=== PATIENT | female | born 1960 | race Caucasian/White ===

== ENCOUNTER → 2017-02-14 | Outpatient (CLI) | payer OTHER ==
--- NOTE | 2017-02-14 13:45 | RAD ---
Indication injury 7 weeks previously. Persistent pain. AP oblique and lateral views of the right ankle were obtained. No prior imaging of the ankle is available. There is irregularity, most compatible with a healing, nondisplaced, fracture, involving the lateral malleolus. No additional bony finding is seen. IMPRESSION: Healing fracture lateral malleolus
--- NOTE | 2017-02-14 13:49 | RAD ---
Indication injury several weeks previously. Persistent pain. AP oblique and lateral views of the right foot were obtained. No acute or significant bony finding is seen
== END | disposition home or self-care (01) ==
LOC: RAD 11:38
PROVIDERS: ATTEND Family Medicine
DX: S99.911S Unspecified injury of right ankle, sequela (principal); S99.921S Unspecified injury of right foot, sequela; X58.XXXS Exposure to other specified factors, sequela
CPT/HCPCS: 73610; 73630

== ENCOUNTER 2017-07-07 10:36 | Emergency (ER) | payer OTHER ==
[~2017-07-07] VITALS: Ht 167.6 cm; Wt 74.4 kg
--- NOTE | 2017-07-07 11:22 | PHYS DOC ---
Past History Past Medical History: Hypertension Past Surgical History: Other Alcohol Use: None Drug Use: None Adult General Chief Complaint Chief Complaint: FLU SYMPTOM HPI HPI 56-year-old female presenting to the emergency department with generalized chills body aches headache cough and fever at home. She recently had flu exposure. Her symptoms started about 24 hours ago. The pain in her muscles is sharp shooting nonradiating mild and without alleviating factors. She has been taking [id number] analgesics with mild relief. She reports that her headache was not sudden in onset. She denies any numbness weakness or tingling in her hands or legs. Review of systems is negative for neck stiffness or nuchal rigidity, abdominal pain nausea vomiting. The patient denies any chest pain currently. All other review of systems is negative unless otherwise noted in history of present illness. ED course: 56-year-old female presenting to the emergency department with signs and symptoms suggestive of influenza. Upon arrival the patient is afebrile with mild high blood pressure which is chronic. Heart rate mildly elevated. Otherwise saturating well on room air. On examination of the patient she is well -appearing alert and nontoxic. Lungs are clear bilaterally abdomen is soft and nontender. No evidence of nuchal rigidity. Negative Brudzinski sign. Negative Kernig sign. No evidence of rash of the skin. Normal neurologic exam. Influenza testing sent. Influenza testing negative however we know this test has poor sensitivity this could be false negative. Otherwise blood work and EKG obtained which were unremarkable. EKG shows sinus rhythm with a regular rate. ST segments congruent. Not suggestive of ACS. Chest x-ray unremarkable. Blood work shows mild low potassium which was repleted upon discharge to follow up with her doctor the next few days. The patient was then discharged home in stable condition to follow up with their primary care physician over the next 2-3 days. They were to return if their symptoms worsened or if they were concerned for any reason. [id number] discharge instructions and return precautions were given. Patient's questions were answered to their satisfaction. Patient is comfortable with plan. Review of Systems Review of Systems SEE ABOVE. Allergies Allergies Allergies Coded Allergies Type Severity Reaction Last Updated Verified Penicillins Allergy Unknown 07/07/17 Yes Physical Exam Physical Exam SEE ABOVE Constitutional: Well developed, well nourished, no acute distress, non-toxic appearance. HENT: Normocephalic, atraumatic, bilateral external ears normal, oropharynx moist, no oral exudates, nose normal. [] Eyes: PERRLA, EOMI, conjunctiva normal, no discharge. [] Neck: Normal range of motion, no tenderness, supple, no stridor. [] Cardiovascular:Heart rate regular rhythm, no murmur Lungs & Thorax: Bilateral breath sounds clear to auscultation [] Abdomen: Bowel sounds normal, soft, no tenderness, no masses, no pulsatile masses. [] Skin: Warm, dry, no erythema, no rash. Back: No tenderness, no CVA tenderness. [] Extremities: No tenderness, no cyanosis, no clubbing, ROM intact, no edema. [] Neurologic: Alert and oriented X 3, normal motor function, normal sensory function, no focal deficits noted. Psychologic: Affect normal, judgement normal, mood normal. [] Current Patient Data Vital Signs Vital Signs Date Time Temp Pulse Resp B/P (MAP) Pulse Ox O2 Delivery O2 Flow Rate FiO2 07/07/17 10:47 98.6 107 16 95 Room Air EKG EKG [] Radiology/Procedures Radiology/Procedures [] Course & Med Decision Making Course & Med Decision Making Pertinent Labs and Imaging studies reviewed. (See chart for details) [] Dragon Disclaimer Dragon Disclaimer This electronic medical record was generated, in whole or in part, using a voice recognition dictation system. Departure Departure: Impression: Primary Impression: Body aches Additional Impressions: Fever Exposure to influenza Headache Cough Disposition: HOME, SELF-CARE Condition: STABLE Referrals: JAYASHREE TALAMANTES (PCP) Patient Instructions: Influenza, Adult Additional Instructions: Thank you for allowing us to participate in your care today. Followup with your primary care physician in 3 days if your symptoms do not improve. Call your Primary Doctor tomorrow and inform them of your visit today. If you do not have a primary care provider you can ask for a list of our primary care providers. Return to the emergency department you have any new or concerning findings. This should be evaluated by the primary care physician and any necessary consulting services for continued management within a few days after discharge. Return to emergency room if you have any new or concerning symptoms including but not limited to fever, chills, nausea, vomiting, intractable pain, any new rashes, chest pain, shortness of air, uncontrolled bleeding, difficulty breathing, and/or vision loss. Scripts Potassium Chloride (POTASSIUM CHLORIDE) 10 Meq Tablet.er 10 MEQ PO DAILY, #7 TAB Prov: SIGIFREDO FREITAS MD 07/07/17 Ibuprofen (IBUPROFEN) 400 Mg Tablet 1 TAB PO PRN Q8HRS Y for PAIN, #20 TAB Prov: SIGIFREDO FREITAS MD 07/07/17 Problem Qualifiers SIGIFREDO FREITAS MD Jul 07, 2017 11:22
[2017-07-07 11:24] LABS: INFLUENZA A PATIENT NEGATIVE (NEGATIVE); INFLUENZA B PATIENT NEGATIVE (NEGATIVE)
--- NOTE | 2017-07-07 12:21 | RAD ---
CHEST AP ONLY Clinical Indication: cough Comparison: Acute abdomen series dated 08/16/2007 Findings: The patient is slightly rotated to the right. Normal lung volume. Remote granulomatous disease. No focal consolidations. Normal pulmonary vasculature. No pleural effusion or pneumothorax. The cardiomediastinal silhouette is normal. Stable tortuous thoracic aorta. No acute osseous abnormality. IMPRESSION: No acute artery pulmonary process.
[2017-07-07 12:37] LABS: BASO % 1 % (0-3); EOS % 1 % (0-3); HEMATOCRIT 46.4 % (36.0-47.0); HEMOGLOBIN 16.1 g/dL (12.0-15.5); LYMPH # 1.1 x10^3/uL (1.0-4.8); LYMPH % 15 % (24-48); MEAN CORPUSCULAR HEMOGLOBIN 32 pg (25-35); MEAN CORPUSCULAR HGB CONC 35 g/dL (31-37); MEAN CORPUSCULAR VOLUME 92 fL (79-100); MONO # 0.6 x10^3/uL (0.0-1.1); MONO % 8 % (0-9); NEUT # 5.3 x10^3uL (1.8-7.7); NEUT % 75 % (31-73); PLATELET COUNT 198 x10^3/uL (140-400); RED BLOOD COUNT 5.03 x10^6/uL (3.50-5.40); RED CELL DISTRIBUTION WIDTH 13.4 % (11.5-14.5); WHITE BLOOD COUNT 7.1 x10^3/uL (4.0-11.0)
[2017-07-07 12:46] LABS: BACTERIA,URINE 0 /HPF (0-FEW); BILIRUBIN,URINE NEG (NEG); CLARITY,URINE CLEAR; COLOR,URINE YELLOW; GLUCOSE,URINE NEG (NEG); NITRITE,URINE NEG (NEG); RBC,URINE RARE /HPF (0-2); SQUAMOUS EPITHELIAL CELL,UR OCC /LPF; UROBILINOGEN,URINE 0.2 mg/dL (0.2 mg/dL); WBC,URINE 0 /HPF (0-4)
[2017-07-07] MEDS ORDERED: IBUPROFEN 400 MG TABLET. PO ONE ×2 (12:56→13:15)
[2017-07-07 13:03] LABS: ALBUMIN 3.9 g/dL (3.4-5.0); CALCIUM 9.5 mg/dL (8.5-10.1); CREATININE 0.6 mg/dL (0.6-1.0); DIRECT BILIRUBIN 0.2 mg/dL (0.0-0.2); POTASSIUM 3.2 mmol/L (3.5-5.1); TOTAL BILIRUBIN 0.8 mg/dL (0.2-1.0); TOTAL PROTEIN 7.6 g/dL (6.4-8.2)
[2017-07-07] MEDS ORDERED: IBUP400T18 PO (13:17)
[2017-07-07] MEDS ORDERED: POTA10TA10 PO (13:19)
[2017-07-07 13:29] VITALS: BP 131/88
--- NOTE | 2017-07-07 14:44 | EKG ---
[address] [address] Test Date: 2017-07-07 Test Time: 12:20:29 Pat Name: OUMOU GILMORE Department: Room: Gender: F [employer] Glazer: ERNESTINA : 1960 Requested By: SIGIFREDO FREITAS Order Number: [id number] Reading MD: Casey Castillo Measurements Intervals Gonzales Rate: 91 P: 9 DC: 156 QRS: 44 QRSD: 92 T: 12 QT: 324 QTc: 400 Interpretive Statements SINUS RHYTHM LEFT ATRIAL ABNORMALITY ABNORMAL ECG Electronically Signed On 07-11-2017 10:57:48 [employer] OPERATOR by Casey Castillo
== END 2017-07-07 13:30 | disposition home or self-care (01) ==
LOC: ER 10:36
DX: Z20.828 Contact with and (suspected) exposure to other viral communicable diseases (principal); M79.1 Myalgia; R51 Headache; I10 Essential (primary) hypertension; Z88.0 Allergy status to penicillin
CPT/HCPCS: 36415; 71045; 80048; 80076; 81001; 82550; 83690; 84484; 85025; 87804; 93005; 99285-25

== ENCOUNTER → 2017-10-10 | Outpatient (CLI) | payer OTHER ==
[~2017-10-10] MED LIST: IBUP400T18 PO; POTA10TA10 PO
[2017-10-10 07:44] LABS: BASO # 0.1 x10^3/uL (0.0-0.2); BASO % 1 % (0-3); EOS # 0.2 x10^3/uL (0.0-0.7); EOS % 2 % (0-3); HEMOGLOBIN 16.3 g/dL (12.0-15.5); LYMPH # 2.6 x10^3/uL (1.0-4.8); LYMPH % 32 % (24-48); MEAN CORPUSCULAR HEMOGLOBIN 32 pg (25-35); MEAN CORPUSCULAR HGB CONC 35 g/dL (31-37); MEAN CORPUSCULAR VOLUME 91 fL (79-100); MONO # 0.6 x10^3/uL (0.0-1.1); MONO % 7 % (0-9); NEUT # 4.7 x10^3uL (1.8-7.7); NEUT % 58 % (31-73); PLATELET COUNT 252 x10^3/uL (140-400); RED BLOOD COUNT 5.14 x10^6/uL (3.50-5.40); RED CELL DISTRIBUTION WIDTH 13.4 % (11.5-14.5); WHITE BLOOD COUNT 8.1 x10^3/uL (4.0-11.0)
[2017-10-10 07:50] LABS: BACTERIA,URINE 0 /HPF (0-FEW); BILIRUBIN,URINE NEG (NEG); CLARITY,URINE CLEAR; COLOR,URINE YELLOW; GLUCOSE,URINE NEG (NEG); NITRITE,URINE NEG (NEG); RBC,URINE 0 /HPF (0-2); SQUAMOUS EPITHELIAL CELL,UR OCC /LPF; UROBILINOGEN,URINE 0.2 mg/dL (0.2 mg/dL); WBC,URINE RARE /HPF (0-4)
[2017-10-10 08:00] LABS: ALBUMIN 4.3 g/dL (3.4-5.0); ALBUMIN/GLOBULIN RATIO 1.2 (1.0-1.7); CALCIUM 9.6 mg/dL (8.5-10.1); CREATININE 0.6 mg/dL (0.6-1.0); POTASSIUM 3.7 mmol/L (3.5-5.1); TOTAL BILIRUBIN 0.8 mg/dL (0.2-1.0); TOTAL PROTEIN 7.9 g/dL (6.4-8.2)
[2017-10-10 13:59] LABS: FREE T4 0.98 ng/dL (0.76-1.46); THYROID STIM HORMONE (TSH) 1.013 uIU/mL (0.358-3.740)
== END | disposition home or self-care (01) ==
LOC: LAB 07:21
PROVIDERS: ATTEND Physician Assistant
DX: Z00.01 Encounter for general adult medical examination with abnormal findings (principal); I10 Essential (primary) hypertension; R79.89 Other specified abnormal findings of blood chemistry
CPT/HCPCS: 36415; 80053; 80061; 81001; 82306; 84439; 84443; 85025; 86141

== ENCOUNTER → 2018-09-14 | Outpatient (CLI) | payer OTHER ==
[2018-09-14 12:22] LABS: BASO % 1 % (0-3); EOS # 0.1 x10^3/uL (0.0-0.7); EOS % 1 % (0-3); HEMATOCRIT 46.5 % (36.0-47.0); HEMOGLOBIN 15.9 g/dL (12.0-15.5); LYMPH # 2.2 x10^3/uL (1.0-4.8); LYMPH % 30 % (24-48); MEAN CORPUSCULAR HEMOGLOBIN 32 pg (25-35); MEAN CORPUSCULAR HGB CONC 34 g/dL (31-37); MEAN CORPUSCULAR VOLUME 93 fL (79-100); MONO # 0.5 x10^3/uL (0.0-1.1); MONO % 7 % (0-9); NEUT # 4.5 x10^3uL (1.8-7.7); NEUT % 61 % (31-73); PLATELET COUNT 241 x10^3/uL (140-400); RED BLOOD COUNT 4.99 x10^6/uL (3.50-5.40); RED CELL DISTRIBUTION WIDTH 13.5 % (11.5-14.5); WHITE BLOOD COUNT 7.3 x10^3/uL (4.0-11.0)
[2018-09-14 12:31] LABS: ALBUMIN 4.1 g/dL (3.4-5.0); ALBUMIN/GLOBULIN RATIO 1.1 (1.0-1.7); CALCIUM 9.9 mg/dL (8.5-10.1); CREATININE 0.6 mg/dL (0.6-1.0); GFR 102.7; POTASSIUM 4.3 mmol/L (3.5-5.1); TOTAL BILIRUBIN 0.7 mg/dL (0.2-1.0); TOTAL PROTEIN 7.8 g/dL (6.4-8.2)
[2018-09-14 12:42] LABS: BACTERIA,URINE FEW /HPF (0-FEW); BILIRUBIN,URINE NEG (NEG); CLARITY,URINE HAZY; COLOR,URINE STRAW; GLUCOSE,URINE NEG (NEG); NITRITE,URINE NEG (NEG); RBC,URINE 0 /HPF (0-2); SQUAMOUS EPITHELIAL CELL,UR FEW /LPF; UROBILINOGEN,URINE 0.2 mg/dL (0.2 mg/dL); WBC,URINE 0 /HPF (0-4)
--- NOTE | 2018-09-14 12:43 | RAD ---
DATE: 09/14/2018 EXAM: MAMMO PRABHA SCREENING BILATERAL HISTORY: Routine screening COMPARISON: Baseline study This study was interpreted with the benefit of Computerized Aided Detection (CAD). Breast Density: SCATTERED The breast parenchyma shows scattered fibroglandular densities. Breast parenchyma level B. FINDINGS: No suspicious mass or architectural distortion is evident. A single benign type calcification is noted on the left. No suspicious microcalcifications are evident. IMPRESSION: There is no mammographic evidence of malignancy in either breast. BI-RADS CATEGORY: 2 BENIGN FINDING(S) RECOMMENDED FOLLOW-UP: 12M 12 MONTH FOLLOW-UP PQRS compliance statement: Patient information was entered into a reminder system with a target due date for the next mammogram. Mammography is a sensitive method for finding small breast cancers, but it does not detect them all and is not a substitute for careful clinical examination. A negative mammogram does not negate a clinically suspicious finding and should not result in delay in biopsying a clinically suspicious abnormality. "Our facility is accredited by the [employer] Mammography Program."
[2018-09-15 13:37] LABS: FREE T4 0.87 ng/dL (0.76-1.46); THYROID STIM HORMONE (TSH) 0.842 uIU/mL (0.358-3.740)
== END | disposition home or self-care (01) ==
LOC: MAMMO 10:49
PROVIDERS: ATTEND Physician Assistant
DX: Z12.31 Encounter for screening mammogram for malignant neoplasm of breast (principal); C44.91 Basal cell carcinoma of skin, unspecified; I10 Essential (primary) hypertension; E23.2 Diabetes insipidus; M10.9 Gout, unspecified; F41.0 Panic disorder [episodic paroxysmal anxiety]; Z72.0 Tobacco use; Z82.49 Family history of ischemic heart disease and other diseases of the circulatory system
CPT/HCPCS: 36415; 77063; 77067; 80053; 80061; 81001; 84439; 84443; 85025

== ENCOUNTER 2019-07-01 18:42 | Emergency (ER) | payer OTHER ==
[~2019-07-01] VITALS: Ht 167.6 cm; Wt 74.4 kg
--- NOTE | 2019-07-01 18:44 | PHYS DOC ---
Past History Past Medical History: Arthritis, Hypertension Past Surgical History: Other Alcohol Use: None Drug Use: None Adult General Chief Complaint Chief Complaint: FOOT INJURY PAIN ,, " I was moving a pt to CT ... And the oxygen fell over and crushed my right toe..." HPI HPI Patient is a 58 year old female [employer] employee who presents with Lt. lst toe and foot injury. Reportedly while moving a patient to CT table oxygen tank fell off and crushed her left first toe. Patient has obvious compression injury to left first toe. Distal neurovascular intact. Patient is unsure of her last tetanus-in excess of 5-10 years Review of Systems Review of Systems Constitutional: Denies fever or chills [] Eyes: Denies change in visual acuity, redness, or eye pain [] HENT: Denies nasal congestion or sore throat [] Respiratory: Denies cough or shortness of breath [] Cardiovascular: No additional information not addressed in HPI [] GI: Denies abdominal pain, nausea, vomiting, bloody stools or diarrhea [] : Denies dysuria or hematuria [] Musculoskeletal: Denies back pain or joint pain []. Patient complaints of injury to left first toe Integument: Denies rash or skin lesions [] Neurologic: Denies headache, focal weakness or sensory changes [] Endocrine: Denies polyuria or polydipsia [] All other systems were reviewed and found to be within normal limits, except as documented in this note. Family History Family History Noncontributory to presentation Current Medications Current Medications See nursing for home meds Allergies Allergies Allergies Coded Allergies Type Severity Reaction Last Updated Verified Penicillins Allergy Unknown 07/07/17 Yes Physical Exam Physical Exam Constitutional: in acute distress, non-toxic appearance. [] HENT: Normocephalic, atraumatic, bilateral external ears normal, oropharynx moist, no oral exudates, nose normal. [] Eyes: PERRLA, EOMI, conjunctiva normal, no discharge. [] Neck: Normal range of motion, no tenderness, supple, no stridor. [] Cardiovascular:Heart rate regular rhythm, no murmur [] Lungs & Thorax: Bilateral breath sounds clear to auscultation [] Abdomen: Bowel sounds normal, soft, no tenderness, no masses, no pulsatile masses. [] Skin: Warm, dry, no erythema, no rash. [] Back: No tenderness, no CVA tenderness. [] Extremities: No tenderness, no cyanosis, no clubbing, ROM intact, no edema. [] Except findings of crush injury to left first toe as per history of present illness. Arthritic changes. Neurologic: Alert and oriented X 3, normal motor function, normal sensory function, no focal deficits noted. [] Psychologic: Affect anxious, judgement normal, mood normal. [] EKG EKG [] Radiology/Procedures Radiology/Procedures [][address] [address] IMAGING REPORT Signed PATIENT: OUMOU GILMORE ACCOUNT: [id number] : 1960 LOCATION: ER AGE: 58 SEX: F EXAM STATUS: REG ER ORD. PHYSICIAN: SONU SHORT MD REASON: crush foot and lst toe with oxygen container PROCEDURE: FOOT LEFT 3V EXAM: AP, oblique and lateral views left foot DATE: 07/01/2019 7:32 PM INDICATION: crush foot and lst toe with oxygen container COMPARISON: No Prior FINDINGS/ IMPRESSION: Decreased bone mineral density. No evidence of acute fracture or dislocation. Mild forefoot soft tissue swelling. Calcaneal enthesopathy. Electronically signed by: Henry Rabago MD (07/01/2019 9:04 PM) [facility] DICTATED AND SIGNED BY: HENRY RABAGO MD DATE: 07/01/19 2104 CC: SONU SHORT MD; JAYASHREE TALAMANTES ~ Course & Med Decision Making Course & Med Decision Making Pertinent Labs and Imaging studies reviewed. (See chart for details) Patient take Tylenol and ibuprofen as needed for pain. For marked pain may take Vicoprofen up to 4 times a day. Wear only White Socks. Apply Polysporin to abrasion area of left first toe. Follow-up primary care. Follow-up work comp. Return if any concerns. Wear a stiff shoe. Impression: 1. Crush Injury Lt lst Toe [] Dragon Disclaimer Dragon Disclaimer This electronic medical record was generated, in whole or in part, using a voice recognition dictation system. Departure Departure: Disposition: 01 HOME/RESIDENCE PRIOR TO ADM Condition: STABLE Referrals: JAYASHREE TALAMANTES (PCP) Scripts Hydrocodone/Ibuprofen (HYDROCODONE-IBUPROFEN 7.5-200 ) 1 Each Tablet 1 TAB PO PRN Q6HRS PRN for PAIN, #30 TAB 0 Refills Prov: SONU SHORT MD 07/01/19 Aris Disclaimer This chart was dictated in whole or in part using Voice Recognition software in a busy, high-work load, and often noisy Emergency Department environment. It may contain unintended and wholly unrecognized errors or omissions. SONU SHORT MD Jul 01, 2019 18:44
[2019-07-01] MEDS ORDERED: IBUPROFEN 600 MG TABLET. PO ONE (20:00)
[2019-07-01] MEDS ORDERED: DIPHTH,PERTUSS(ACELL),TET TOX 0.5 ML DISP.SYRIN. VAX IM ONE (20:00)
[2019-07-01] MEDS ORDERED: ACETAMINOPHEN 500 MG TABLET PO ONE (20:00)
[2019-07-01] MEDS ORDERED: HYDR-1179 PO (20:42)
[2019-07-01 20:58] VITALS: BP 144/79
--- NOTE | 2019-07-01 21:07 | RAD ---
EXAM: AP, oblique and lateral views left foot DATE: 07/01/2019 7:32 PM INDICATION: crush foot and lst toe with oxygen container COMPARISON: No Prior FINDINGS/ IMPRESSION: Decreased bone mineral density. No evidence of acute fracture or dislocation. Mild forefoot soft tissue swelling. Calcaneal enthesopathy. Electronically signed by: Henry Campbell MD (07/01/2019 9:04 PM) [id number]
== END 2019-07-01 20:58 | disposition home or self-care (01) ==
LOC: ER 18:42
DX: I10 Essential (primary) hypertension (principal); S97.112A Crushing injury of left great toe, initial encounter; M19.90 Unspecified osteoarthritis, unspecified site; Z88.0 Allergy status to penicillin; W20.8XXA Other cause of strike by thrown, projected or falling object, initial encounter; Y93.89 Activity, other specified; Y92.89 Other specified places as the place of occurrence of the external cause; Y99.0 Civilian activity done for income or pay
CPT/HCPCS: 73630; 90471; 90715; 99284

== ENCOUNTER → 2019-10-14 | Outpatient (CLI) | payer OTHER ==
[~2019-10-14] MED LIST changes: +HYDR-1179 PO
== END | disposition home or self-care (01) ==
LOC: LAB 15:23
PROVIDERS: ATTEND Internal Medicine Cardiovascular Disease
DX: R50.9 Fever, unspecified (principal); R06.02 Shortness of breath; Z20.828 Contact with and (suspected) exposure to other viral communicable diseases
CPT/HCPCS: 87635

== ENCOUNTER → 2020-01-05 | Outpatient (CLI) | payer OTHER ==
[2020-01-05 16:34] LABS: BASO % 1 % (0-3); EOS # 0.1 x10^3/uL (0.0-0.7); EOS % 2 % (0-3); HEMATOCRIT 41.8 % (36.0-47.0); HEMOGLOBIN 14.5 g/dL (12.0-15.5); LYMPH # 2.5 x10^3/uL (1.0-4.8); LYMPH % 28 % (24-48); MEAN CORPUSCULAR HEMOGLOBIN 33 pg (25-35); MEAN CORPUSCULAR HGB CONC 35 g/dL (31-37); MEAN CORPUSCULAR VOLUME 94 fL (79-100); MONO # 0.5 x10^3/uL (0.0-1.1); MONO % 6 % (0-9); NEUT # 5.6 x10^3uL (1.8-7.7); NEUT % 64 % (31-73); PLATELET COUNT 246 x10^3/uL (140-400); RED BLOOD COUNT 4.43 x10^6/uL (3.50-5.40); RED CELL DISTRIBUTION WIDTH 13.7 % (11.5-14.5); WHITE BLOOD COUNT 8.7 x10^3/uL (4.0-11.0)
[2020-01-05 16:41] LABS: ALBUMIN/GLOBULIN RATIO 1.2 (1.0-1.7); CALCIUM 9.2 mg/dL (8.5-10.1); CREATININE 0.8 mg/dL (0.6-1.0); GFR 73.2; POTASSIUM 3.5 mmol/L (3.5-5.1); TOTAL BILIRUBIN 0.4 mg/dL (0.2-1.0); TOTAL PROTEIN 7.4 g/dL (6.4-8.2)
[2020-01-06 15:22] LABS: FREE T4 0.97 ng/dL (0.76-1.46); THYROID STIM HORMONE (TSH) 0.775 uIU/mL (0.358-3.740)
== END ==
LOC: LAB 15:09
PROVIDERS: ATTEND Physician Assistant
DX: Z00.00 Encounter for general adult medical examination without abnormal findings (principal); M10.9 Gout, unspecified; E23.2 Diabetes insipidus; I10 Essential (primary) hypertension; Z82.49 Family history of ischemic heart disease and other diseases of the circulatory system
CPT/HCPCS: 36415; 80053; 80061; 84439; 84443; 85025

== ENCOUNTER 2020-04-04 09:15 | Emergency (ER) | payer OTHER ==
[~2020-04-04] VITALS: Ht 167.6 cm; Wt 74.5 kg
--- NOTE | 2020-04-04 09:49 | PHYS DOC ---
Past History Past Medical History: Arthritis, Hypertension Past Surgical History: Other Additional Past Surgical Histo: left knee Alcohol Use: None Drug Use: None General Adult EDM: Chief Complaint: ANKLE PROBLEM HPI: HPI: 59-year-old female past medical history significant for gout and hypertension, presents to the ED with complaints of right lateral ankle pain that started late last night after patient fell and twisted her right ankle while she was walking down stairs in the dark. Patient states she did not see that a rake was over the steps-left foot stepped on the rake and patient fell such that her right ankle inverted. Does report a history of a right ankle fracture 1 or 2 years ago that she did not seek medical attention until it was already healed. Took 800 mg of ibuprofen at 7:30 in the morning. Denies any recent antibiotic or fluoroquinolone use. Was not under influence of any alcohol drugs. Is not on any anticoagulants. Did not hit her head or have any LOC. Reports she is able to put some weight on the heel of her foot but is using a family members crutches. Vaccines UTD. Review of Systems: Review of Systems: Constitutional: Denies fever or chills Eyes: Denies change in visual acuity HENT: Denies nasal congestion or sore throat or hemoptysis Respiratory: Denies cough or shortness of breath Cardiovascular: Denies chest pain or edema GI: Denies abdominal pain, nausea, vomiting, bloody stools or diarrhea : Denies dysuria or hematuria Musculoskeletal: Denies back pain or joint pain Integument: Denies rash Neurologic: Denies headache, focal weakness or sensory changes, midline neck pain or neck stiffness, saddle anesthesia, urinary bowel retention or incontinence Endocrine: Denies polyuria or polydipsia Lymphatic: Denies swollen glands Psychiatric: Denies depression or anxiety Heart Score: Risk Factors: Risk Factors: DM, Current or recent (<one month) smoker, HTN, HLP, family history of CAD, obesity. Risk Scores: Score 0 - 3: 2.5% MACE over next 6 weeks - Discharge Home Score 4 - 6: 20.3% MACE over next 6 weeks - Admit for Clinical Observation Score 7 - 10: 72.7% MACE over next 6 weeks - Early Invasive Strategies Allergies: Allergies: Allergies Coded Allergies Type Severity Reaction Last Updated Verified Penicillins Allergy Unknown 04/04/20 Yes Physical Exam: PE: Constitutional: Well developed, well nourished, no acute distress, non-toxic appearance. [] HENT: Normocephalic, atraumatic, bilateral external ears normal, Eyes: EOMI, conjunctiva normal, no discharge. [] Neck: Normal range of motion, supple, Cardiovascular:Heart rate regular rhythm, S1/2 present Lungs & Thorax: Speaking full sentences, bilateral equal chest rise Abdomen: soft, no tenderness, Skin: Warm, dry, no erythema, no rash. [] Back: No tenderness, Extremities: No tenderness, no cyanosis, no clubbing, painful R plantar flexion, ttp over right distal fibula and lateral malleoli, no pain at knee or fibular head, no hip ttp, R PT/TP intact, no obvious swelling, bunion over foot, no heel pain or plantar ecchymosis Neurologic: Alert and oriented X 3, normal motor function, normal sensory function, no focal deficits noted. [] Psychologic: Affect normal, judgement normal, mood normal. [] Current Patient Data: Vital Signs: Vital Signs Date Time Temp Pulse Resp B/P (MAP) Pulse Ox O2 Delivery O2 Flow Rate FiO2 04/04/20 09:28 97.6 79 18 125/78 (94) 99 Room Air EKG: EKG: [] Radiology/Procedures: Radiology/Procedures: []IMAGING REPORT Signed PATIENT: OUMOU GILMORE ACCOUNT: [id number] : 1960 LOCATION: ER AGE: 59 SEX: F EXAM STATUS: REG ER ORD. PHYSICIAN: AMPARO VARGAS DO REASON: lateral right ankle pain PROCEDURE: ANKLE RIGHT 2V PROCEDURE: ANKLE RIGHT 2V STUDY DATE: 04/04/2020 CLINICAL INDICATION / HISTORY: Reason: lateral right ankle pain / Spl. Instructions: / History: . TECHNIQUE: Right ankle 3 views. COMPARISON: None FINDINGS: Acute horizontally oriented fracture of the medial malleolus with minimal distraction is present along with spiral fracture of the lateral malleolus extending above the tibial plafond and. Lateral view suggests cortical irregularity at the posterior malleolus suspicious for nondisplaced acute fracture present as well. There is relatively little soft tissue swelling associated. A calcaneal spur is present along with a small Stieda process. IMPRESSION: Acute trimalleolar fracture right ankle with no significant displacement. PROCEDURE: FOOT RIGHT 3V STUDY DATE: 04/04/2020 CLINICAL INDICATION / HISTORY: Reason: lateral right ankle pain . TECHNIQUE: AP, oblique and lateral views of the right foot were obtained. COMPARISON: Right ankle x-rays same day FINDINGS: There is generalized osteopenia. An oblique lucency through the medial base of the first cuboid bone is present with minimal displacement. There is overlying soft tissue swelling. The rest of the bones are unremarkable in the right foot. Incidentally noted are lucencies through the medial malleolus, posterior malleolus and distal fibula, compatible with acute trimalleolar ankle fractures. IMPRESSION: Age-indeterminate, possibly acute fracture through the medial base of the first cuboid bone. This is presence in the setting of osteopenia. Otherwise no acute abnormality in the right foot noted. Incidental trimalleolar ankle fracture is present. PROCEDURE: TIBIA FIBULA RIGHT 2V STUDY DATE: 04/04/2020 CLINICAL INDICATION / HISTORY: Reason: lateral right ankle pain. TECHNIQUE: AP and lateral views of the right tibia and fibula. COMPARISON: Right ankle x-rays of the same day. FINDINGS: Patient's acute fractures of the ankle are better imaged and described on the same day right ankle x-rays. In addition to that however, a vertically oriented acute appearing fracture in the proximal right fibula is present without displacement. No proximal tibial fracture is identified. Soft tissues are unremarkable. IMPRESSION: Acute vertically oriented fracture through the proximal right fibula. In addition to the lateral malleolus fracture noted on same-day right ankle x-rays, this is suspicious for syndesmotic injury. Electronically signed by: Jaycee Johnson MD (04/04/2020 10:28 AM) [id number] DICTATED AND SIGNED BY: JAYCEE JOHNSON MD DATE: 04/04/20 1028 CC: JAYASHREE TALAMANTES; AMPARO VARGAS DO ~ Patient was informed of findings. Right stirrup ankle splint applied by RN. The splint is checked by myself, with appropriate stabilization of the injury. Distal capillary refill normal and distal neurologic function intact Course & Med Decision Making: Course & Med Decision Making Pertinent Labs and Imaging studies reviewed. (See chart for details) Concern for acute trimalleolar fracture with possible syndesmotic injury, age- indeterminate right cuboid fracture. Patient very calm with no signs or symptoms of compartment syndrome, does not have any neurologic deficits, no pain out of proportion. Does not have any pain at the fibular head or knee. I discussed patient imaging finding with Dr. Matute, orthopedic surgery who request stirrup splint, crutches, nonweightbearing to right lower extremity and to call for an appointment on this week. We discussed pain management -will provide prescription for low-dose tramadol as needed for pain-patient reports likely she will not refill this medication, does not like how hydrocodone makes her feel. Is aware of the sedating and addicting effects, agrees to have someone who can observe her while taking this medication. Strict ED return precautions were given for severe pain, repeat injury or neurologic deficits. Encouraged urgent outpatient follow-up with PMD and Ortho. Life-threatening processes were considered but are low suspicion at this time, given history and physical exam. Pt was educated on all prescription medications and adverse effects. All patient's questions were answered and pt was stable at time of discharge. Differential includes fracture, dislocation, laceration, osteomyelitis, compartment syndrome, neurovascular injury or deficit, infection (abscess, cellulitis, septic arthritis), head/neck trauma, tendon or ligament injury. I spoken with the patient and her caregivers. I explained the patient's condition, diagnoses and treatment plan based on the information available to me at this time. I have answered the patient and her caregiver's questions and addressed any concerns. The patient and her caregivers have a good understanding of patient's diagnosis, condition and treatment plan as can be expected at this point. Vital signs have been stable. Patient's condition is stable and appropriate for discharge from the emergency department. Patient will pursue further outpatient evaluation with primary care physician or other designated or consulting physician as outlined in the discharge instructions. The patient and/or caregivers are agreeable to this plan of care and follow-up instructions have been explained in detail. The patient and/or caregivers have received these instructions in written form and have expressed an understanding of the discharge instructions. The patient and/or caregivers are aware that any significant change of condition or worsening of symptoms should prompt immediate return to this or the closest emergency department or call to 911. Aris Disclaimer: Aris Disclaimer: This electronic medical record was generated, in whole or in part, using a voice recognition dictation system. Departure Departure: Impression: Primary Impression: Trimalleolar fracture of ankle, closed Additional Impressions: Fracture of right cuboid bone Ankle pain, right Disposition: 01 HOME/RESIDENCE PRIOR TO ADM Condition: STABLE Referrals: JAYASHREE TALAMANTES (PCP) Patient Instructions: Ankle Fracture, Compartment Syndrome of the Foot, Crutch Use, Splint Care, [id number] Additional Instructions: [facility]0-TO SCHEDULE APPOINTMENT TIME FOR Friday04/06/[address] ESCOBAR [address] [facility], [address] [place] [address] EMERGENCY DEPARTMENT GENERAL DISCHARGE INSTRUCTIONS Thank you for coming to [facility] (ED) today and trusting us with you care. We trust that you had a positivie experience in our Emergency Department. If you wish to speak to the department management, you may call the director at [phone]. YOUR FOLLOW UP INSTRUCTIONS ARE FOLLOWS: 1. Do you have a private Doctor? If you do not have a private doctor, please ask for a resource list of physicians or clinics that may be able to assist you with follow up care. 2. The Emergency Physician has interpreted your x-rays. The X-Ray specialist will also review them. If there is a change in the findings, you will be notified in 48 hours when at all possible. 3. A lab test or culture has been done, your results will be reviewed and you will be notified if you need a change in treatment. ADDITIONAL INSTRUCTIONS AND INFORMATION: 1. Your care today has been supervised by a physician who is specially trained in emergency care. Many problems require more than one evaluation for a complete diagnosis and treatment. We recommend that you schedule your follow up appointment as recommended to ensure complete treatment of you illness or injury. If you are unable to obtain follow up care and continue to have a problem, or if your condition worsens, we recommend that you return to the ED. 2. We are not able to safely determine your condition over the phone nor are we able to give sound medical advice over the phone. For these safety reasons, if you call for medical advice we will ask you to come to the ED for further evaluation. 3. If you have any questions regarding these discharge instructions please call the ED at [phone]. SAFETY INFORMATION: In the interest of safety, wellness, and injury prevention; we encourage you to wear your sealbelt, if you smoke; quite smoking, and we encourage family to use a protective helmet for bicycling and other sporting events that present an increased risk for head injury. IF YOUR SYMPTOMS WORSEN OR NEW SYMPTOMS DEVELOP, OR YOU HAVE CONCERNS ABOUT YOUR CONDITION; OR IF YOUR CONDITION WORSENS WHILE YOU ARE WAITING FOR YOUR FOLLOW UP APPOINTMENT; EITHER CONTACT YOUR PRIMARY CARE DOCTOR, THE PHYSICIAN WHOSE NAME AND NUMBER YOU WERE GIVEN, OR RETURN TO THE ED IMMEDIATELY. Scripts Tramadol Hcl (TRAMADOL HCL) 50 Mg Tablet 50 MG PO PRN Q6HRS PRN for PAIN for 3 Days, #12 TAB 0 Refills You can take half a tablet every 6 hours as needed. Avoid alcohol, driving or other sedatives with this medication. Prov: AMPARO VARGAS DO 04/04/20 Justification of Admission: Justification of Admission: Justification of Admission Dx: N/A AMPARO VARGAS DO Apr 04, 2020 09:49
--- NOTE | 2020-04-04 10:30 | RAD ---
PROCEDURE: ANKLE RIGHT 2V STUDY DATE: 04/04/2020 CLINICAL INDICATION / HISTORY: Reason: lateral right ankle pain / Spl. Instructions: / History: . TECHNIQUE: Right ankle 3 views. COMPARISON: None FINDINGS: Acute horizontally oriented fracture of the medial malleolus with minimal distraction is present along with spiral fracture of the lateral malleolus extending above the tibial plafond and. Lateral view suggests cortical irregularity at the posterior malleolus suspicious for nondisplaced acute fracture present as well. There is relatively little soft tissue swelling associated. A calcaneal spur is present along with a small Stieda process. IMPRESSION: Acute trimalleolar fracture right ankle with no significant displacement. PROCEDURE: FOOT RIGHT 3V STUDY DATE: 04/04/2020 CLINICAL INDICATION / HISTORY: Reason: lateral right ankle pain . TECHNIQUE: AP, oblique and lateral views of the right foot were obtained. COMPARISON: Right ankle x-rays same day FINDINGS: There is generalized osteopenia. An oblique lucency through the medial base of the first cuboid bone is present with minimal displacement. There is overlying soft tissue swelling. The rest of the bones are unremarkable in the right foot. Incidentally noted are lucencies through the medial malleolus, posterior malleolus and distal fibula, compatible with acute trimalleolar ankle fractures. IMPRESSION: Age-indeterminate, possibly acute fracture through the medial base of the first cuboid bone. This is presence in the setting of osteopenia. Otherwise no acute abnormality in the right foot noted. Incidental trimalleolar ankle fracture is present. PROCEDURE: TIBIA FIBULA RIGHT 2V STUDY DATE: 04/04/2020 CLINICAL INDICATION / HISTORY: Reason: lateral right ankle pain. TECHNIQUE: AP and lateral views of the right tibia and fibula. COMPARISON: Right ankle x-rays of the same day. FINDINGS: Patient's acute fractures of the ankle are better imaged and described on the same day right ankle x-rays. In addition to that however, a vertically oriented acute appearing fracture in the proximal right fibula is present without displacement. No proximal tibial fracture is identified. Soft tissues are unremarkable. IMPRESSION: Acute vertically oriented fracture through the proximal right fibula. In addition to the lateral malleolus fracture noted on same-day right ankle x-rays, this is suspicious for syndesmotic injury. Electronically signed by: Cuba Johnson MD (04/04/2020 10:28 AM) [id number]
[2020-04-04] MEDS ORDERED: TRAM50TA PO (10:57)
[2020-04-04 11:15] VITALS: BP 125/73
== END 2020-04-04 11:14 | disposition home or self-care (01) ==
LOC: ER 09:15
DX: S82.851A Displaced trimalleolar fracture of right lower leg, initial encounter for closed fracture (principal); S92.211A Displaced fracture of cuboid bone of right foot, initial encounter for closed fracture; M19.90 Unspecified osteoarthritis, unspecified site; I10 Essential (primary) hypertension; M54.2 Cervicalgia; Z88.0 Allergy status to penicillin; X50.1XXA Overexertion from prolonged static or awkward postures, initial encounter; Y93.01 Activity, walking, marching and hiking; Y92.89 Other specified places as the place of occurrence of the external cause; Y99.8 Other external cause status
CPT/HCPCS: 29125; 29515; 73590; 73600; 73630; 99284

== ENCOUNTER → 2020-05-24 | Outpatient (CLI) | payer OTHER ==
[~2020-05-24] MED LIST changes: +TRAM50TA PO
--- NOTE | 2020-05-24 16:34 | RAD ---
Study: CR ANKLE RIGHT 3V Indication: Right ankle pain. Comparison: 04/04/2020 Findings: Intact and well fixated lateral plate and screw ORIF construct at the distal fibula. The intervening fracture seen on the comparison is not well identified on this exam and appears mostly healed. Two intact and well fixated medial malleolus screws. Partially healed intervening medial malleolar fracture which is in anatomic alignment. No newly seen fracture. The ankle mortise is symmetric. Midfoot arthrosis and a plantar calcaneal spur. Impression: Intact distal fibula and medial malleolar are surgical hardware. Mostly healed distal fibula and medial malleolar fractures. Electronically signed by: LUCY VIDES MD (05/24/2020 4:32 PM) [id number]
== END ==
LOC: DXRAD 10:19
PROVIDERS: ATTEND Physician Assistant
DX: M19.071 Primary osteoarthritis, right ankle and foot (principal); M77.31 Calcaneal spur, right foot; Z98.890 Other specified postprocedural states
CPT/HCPCS: 73610

== ENCOUNTER → 2020-10-20 | Outpatient (CLI) | payer OTHER ==
[2020-10-20 08:48] LABS: BASO % 1 % (0-3); EOS # 0.1 x10^3/uL (0.0-0.7); EOS % 2 % (0-3); HEMATOCRIT 41.8 % (36.0-47.0); HEMOGLOBIN 14.3 g/dL (12.0-15.5); LYMPH # 2.5 x10^3/uL (1.0-4.8); LYMPH % 31 % (24-48); MEAN CORPUSCULAR HEMOGLOBIN 32 pg (25-35); MEAN CORPUSCULAR HGB CONC 34 g/dL (31-37); MEAN CORPUSCULAR VOLUME 94 fL (79-100); MONO # 0.6 x10^3/uL (0.0-1.1); MONO % 8 % (0-9); NEUT # 4.8 x10^3uL (1.8-7.7); NEUT % 59 % (31-73); PLATELET COUNT 244 x10^3/uL (140-400); RED BLOOD COUNT 4.43 x10^6/uL (3.50-5.40); RED CELL DISTRIBUTION WIDTH 13.2 % (11.5-14.5); WHITE BLOOD COUNT 8.2 x10^3/uL (4.0-11.0)
[2020-10-20 09:00] LABS: ALBUMIN 3.7 g/dL (3.4-5.0); ALBUMIN/GLOBULIN RATIO 1.1 (1.0-1.7); C REACTIVE PROTEIN 2.8 mg/L (0-3.3); CALCIUM 8.8 mg/dL (8.5-10.1); GFR 56.6; POTASSIUM 3.6 mmol/L (3.5-5.1); TOTAL BILIRUBIN 0.4 mg/dL (0.2-1.0)
[2020-10-20 09:20] LABS: BILIRUBIN,URINE NEG (NEG); CLARITY,URINE CLEAR; COLOR,URINE YELLOW; GLUCOSE,URINE NEG (NEG)
[2020-10-20 09:21] LABS: NITRITE,URINE NEG (NEG); UROBILINOGEN,URINE 0.2 mg/dL (0.2 mg/dL)
[2020-10-20 09:22] LABS: BACTERIA,URINE 0 /HPF (0-FEW); RBC,URINE 0 /HPF (0-2); WBC,URINE 0 /HPF (0-4)
== END ==
LOC: LAB 07:45
PROVIDERS: ATTEND Family Medicine
DX: E03.9 Hypothyroidism, unspecified (principal); M86.8X8 Other osteomyelitis, other site
CPT/HCPCS: 36415; 80053; 81001; 84443; 85025; 86140

== ENCOUNTER → 2021-02-27 | Outpatient (CLI) | payer OTHER | LOC: LAB 17:40 | PROVIDERS: ATTEND Internal Medicine Cardiovascular Disease | DX: R07.0 Pain in throat (principal); M79.10 Myalgia, unspecified site; R51.9 Headache, unspecified; R53.81 Other malaise; Z20.822 Contact with and (suspected) exposure to COVID-19 | CPT/HCPCS: U0003 ==

== ENCOUNTER → 2021-07-17 | Outpatient (CLI) | payer OTHER | LOC: LAB 15:10 | PROVIDERS: ATTEND Internal Medicine Cardiovascular Disease | DX: U07.1 COVID-19 (principal) | CPT/HCPCS: U0003 ==